=== PATIENT | male | born 1955 | race Caucasian/White ===

== ENCOUNTER → 2017-01-04 | Outpatient (CLI) | payer OTHER ==
--- NOTE | ~2017-01-04 | ECH ---
Transthoracic Echocardiography Report (TTE) Demographics Patient Name EBER GALLAGHER JR Date of Study 01/04/2017 Patient Number [id number] Visit Number [id number] Date of 1955 Room Number Accession Number [id number] Gender Male Age 61 year(s) Referring Annita Kemp Physician Practice Consultant Malinda Frye [facility] Physician Physician Interpreting Ildefonso Gaytan Inside Sales Representative Physician Supervising Ordering Physician Annita Kemp MD, MD/P Nurse Stress Machine Maintenance Repairer Conclusions Summary Technically adequate exam. The estimated left ventricular ejection fraction is 65%. Moderate left ventricular hypertrophy. Diastolic assessment reveals Grade I diastolic dysfunction. Right atrium at upper limits of normal size. The aortic valve is moderately sclerotic. There is mild to moderate aortic stenosis by the Continuity Equation. The peak velocity is 3.1 m/s, the mean gradient is 23.8mmHg, and the valve area based on the continuity equation is 1.15cm2, stroke volume index is 29ml/m2. There is trivial aortic regurgitation by color Doppler. No other significant valvular abnormalities. The ascending aorta appears moderately dilated. The maximum diameter measures 4.1 cm. Procedure Type of Study TTE procedure:Echo Complete SF. Procedure Date Date: 01/04/2017 Start: 01:04 PM Technical Quality: Adequate visualization Indications:Aortic stenosis. Appropriate Use Criteria: 9 Height: 70 inches Weight: 254 pounds BSA: 2.31 m Rhythm: NSR HR: 67 bpm BP: 142/72 mmHg M-Mode/2D Measurements LV Diastolic Dimension: 4.18 cm LV Systolic Dimension: 2.49 cm LV Septum Diastolic: 1.52 cm LV PW Diastolic: 1.41 cm AO Root Dimension: 3.03 cm Cardiac Output: 4.51 l/min LA Dimension: 3.66 cm Cardiac Index: 1.95 l/min*m RV Diastolic Dimension: 3.82 cm LA volume index: 25 ml/m LVOT: 2.07 cm LVOT VTI: 20.03 cm RV Base: 3.7 cm LV Stroke volume: 67.37 ml RV Mid: 2.7 cm LV Stroke volume index: 29.16 ml/m RV Length: 7.2 cm Doppler Measurements AV Peak Velocity: 3.1 m/s MV Peak E-Wave: 0.56 m/s AV Peak Gradient: 38.44 mmHg MV Peak A-Wave: 0.65 m/s AV Mean Gradient: 23.8 mmHg MV E/A Ratio: 0.87 LVOT Peak Velocity: 0.88 m/s MV P1/2t: 90.9 msec AV Area (Continuity):1.15 cm MV Deceleration Time: 331.5 msec TR Velocity:2.51 m/s MV Area (PHT): 2.42 cm TR Gradient:25.19 mmHg PV Peak Velocity: 1.08 m/s Estimated RAP:5 mmHg PV Peak Gradient: 4.63 mmHg Estimated RVSP: 30 mmHg Estimated PASP: 30.19 mmHg E' Septal Velocity: 0.07 m/s A' Septal Velocity: 0.1 m/s E' Lateral Velocity: 0.06 m/s A' Lateral Velocity: 0.12 m/s RA Area: 18.14 cm Findings Left Ventricle The left ventricle is normal in size . Moderate left ventricular hypertrophy. Diastolic assessment reveals Grade I diastolic dysfunction. Right Ventricle Normal right ventricle structure and function. Left Atrium Normal left atrial size. Right Atrium Right atrium at upper limits of normal size. Mitral Valve Normal mitral valve structure and function. Trivial mitral regurgitation by color Doppler. Aortic Valve The aortic valve is moderately sclerotic. There is mild to moderate aortic stenosis by the Continuity Equation. The peak velocity is 3.1 m/s, the mean gradient is 23.8mmHg, and the valve area based on the continuity equation is 1.15cm2, stroke volume index is 29ml/m2. Peak velocity at apical view. There is trivial aortic regurgitation by color Doppler. Tricuspid Valve Normal tricuspid valve structure and function. Mild tricuspid regurgitation by color Doppler. Estimated pulmonary pressures within normal range. Pulmonic Valve Normal pulmonic valve structure and function. Trivial pulmonic valve regurgitation by color Doppler. Pericardial Effusion No evidence of pericardial effusion. Miscellaneous The ascending aorta appears moderately dilated. The maximum diameter measures 4.1 cm. Pleural Effusion No evidence of pleural effusion. Contractility Score LV regional wall motion:(0-Non visualized 1-Normal 2-Hypokinesis 3-Akinesis 4-Dyskinesis 5-Aneurysm) Signature
== END | disposition home or self-care (01) ==
LOC: CARD 12:52
DX: I35.0 Nonrheumatic aortic (valve) stenosis (principal)